=== PATIENT | female | born 1985 | race Caucasian/White ===

== ENCOUNTER → 2016-12-05 | Outpatient (CLI) | payer MEDICAID ==
[2016-12-05 13:03] LABS: Glucose 3 Hour, Gest 127 mg/dL
== END | disposition home or self-care (01) ==
LOC: LABWHC1 08:08
PROVIDERS: ATTEND Obstetrics & Gynecology
DX: O99.810 Abnormal glucose complicating pregnancy (principal); Z3A.00 Weeks of gestation of pregnancy not specified
CPT/HCPCS: 36415; 82951; 82952

== ENCOUNTER → 2017-03-07 | Outpatient (CLI) | payer MEDICAID | END | disposition home or self-care (01) | LOC: LABWHC1 08:51 | PROVIDERS: ATTEND Obstetrics & Gynecology | DX: Z36 Encounter for antenatal screening of mother (principal) | CPT/HCPCS: 36415; 82950 ==

== ENCOUNTER → 2017-03-18 | Outpatient (CLI) | payer MEDICAID ==
[2017-03-18 12:04] LABS: Glucose 3 Hour, Gest 127 mg/dL
== END | disposition home or self-care (01) ==
LOC: LABWHC1 07:41
PROVIDERS: ATTEND Obstetrics & Gynecology
DX: O99.810 Abnormal glucose complicating pregnancy (principal); Z3A.00 Weeks of gestation of pregnancy not specified
CPT/HCPCS: 36415; 82951; 82952

== ENCOUNTER 2017-05-25 00:38 | Inpatient (IN) | payer MEDICAID ==
[2017-05-25] MEDS ORDERED: OXYTOCIN 10 UNIT/ML 1 ML VIAL IM PRN (00:55)
[2017-05-25] MEDS ORDERED: LIDOCAINE 1% (PF) 10 MG/ML (30 ML SDV) SQ PRN (00:55)
[2017-05-25] MEDS ORDERED: METHYLERGONOVINE 0.2 MG/ML 1 ML AMP IM PRN (00:55)
[2017-05-25] MEDS ORDERED: CARBOPROST TROMETHAMINE 250 MCG/ML 1 ML AMP IM PRN (00:55)
[2017-05-25] MEDS ORDERED: TERBUTALINE 1 MG/ML VIAL SQ PRN (00:55)
[2017-05-25] MEDS: LACTATED RINGERS 1,000 ML IV SCH ×2 (01:00→20:34)
[2017-05-25 01:14] LABS: Anisocytosis Slight; Basophils % (A) 0 %; CH 30.7; CHCM 34.1; Eosinophils % (A) 0 %; HCT 37.7 % (34.0-46.0); HDW 2.66; HGB 12.5 gm/dL (11.4-16.0); Luc # (Auto) 0.32; Luc % (Auto) 3; Lymphocytes # (A) 1.6 k/uL (1.0-4.8); Lymphocytes % (A) 15 %; MCH 30.1 pg (25.0-35.0); MCHC 33.2 g/dL (31.0-37.0); MCV 90.5 fL (80.0-100.0); Monocytes # (A) 0.5 k/uL (0-1.0); Monocytes % (A) 4 %; Neutrophils # (A) 8.7 k/uL (1.3-7.7); Neutrophils % (A) 78 %; RBC 4.17 m/uL (3.80-5.40); RDW 16.3 % (11.5-15.5); WBC 11.2 k/uL (3.8-10.6); WBC (Perox) 11.77
--- NOTE | 2017-05-25 02:22 | P.HPOB ---
History of Present Illness H&P Date: 05/25/17 Chief Complaint: contractions This is a 32 yo that presents to OB with c/o CTX, and vaginal bleeding. she notes good FM, and denies LOF pre priscilla blood work showed a blood type of A+, Rubella immune RPR was NR, HBSaG neg, and HIV neg. on initial cervical exam she was complete with a buldging membranes. Past Medical History Past Medical History: No Reported History (GDM) History of Any Multi-Drug Resistant Organisms: None Reported Additional Past Surgical History / Comment(s): [place] teeth removal Past Anesthesia/Blood Transfusion Reactions: No Reported Reaction Past Psychological History: No Psychological Hx Reported Smoking Status: Never smoker Past Alcohol Use History: None Reported Past Drug Use History: None Reported Medications and Allergies Home Medications Medication Instructions Recorded Confirmed Type Vit 40/Iron/Folic/Dha 1 each PO DAILY 03/22/17 05/25/17 History [ Multivitamin-Dha Sfgl] Allergies Allergy/AdvReac Type Severity Reaction Status Date / Time No Known Allergies Allergy Verified 05/25/17 00:54 Exam Osteopathic Statement: *. No significant issues noted on an osteopathic structural exam other than those noted in the History and Physical/Consult. - Vital Signs Vital signs: Intake and Output 05/24/17 05/24/17 05/25/17 14:59 22:59 06:59 Other: Weight 92.986 kg Patient Weight 05/25/17 06:59 Weight 92.986 kg - OBG Physical Exam Cervix: compete with a bulging bag of water Results Result Diagrams: 05/25/17 01:02 Abnormal Lab Results - Last 24 Hours (Table) 05/25/17 Range/Units 01:02 WBC 11.2 H (3.8-10.6) k/uL RDW 16.3 H (11.5-15.5) % Neutrophils # 8.7 H (1.3-7.7) k/uL Assessment and Plan (1) Active labor at term Status: Acute Plan: admit to Labor and Delivery with anticipation of
--- NOTE | 2017-05-25 02:27 | P.PROBDLV ---
Vaginal Delivery Note - . Vaginal Delivery Note: Pre op dx; IUP @ 38 4/7 weeks, labor, GDM Post op dx; same Procedure , repair of left lateral vaginal sulcus tear, midline second degree laceration repair. Surgeon; Viktor Tavera DO Anesthesia: local with repair EBL; 300 Findings male in OA presentation with loose nuchal cord delivered through , at 1:38. male infant "avett", 7-0. placenta delivered spontaneously intact with 3VC. Apgars of 9, 9 at 1 and 5 mins respectively. Complications: none
[2017-05-25] MEDS ORDERED: ACETAMINOPHEN TAB 325 MG TAB PO PRN (02:28)
[2017-05-25] MEDS ORDERED: BENZOCAINE/MENTHOL SPRAY 1 GM/SPRAY AEROSOL TOPICAL PRN (02:28)
[2017-05-25] MEDS ORDERED: diphenhydrAMINE 50 MG/ML 1 ML VIAL IVP PRN ×2 (02:28)
[2017-05-25] MEDS ORDERED: HYDROCORTISONE 2.5% RECTAL CREAM 30 GM TUBE RECTAL PRN (02:28)
[2017-05-25] MEDS ORDERED: LANOLIN CREAM 5 GM TUBE TOPICAL PRN (02:28)
[2017-05-25] MEDS ORDERED: WITCH HAZEL 1 EACH MED..PAD TOPICAL PRN (02:28)
[2017-05-25] MEDS ORDERED: SIMETHICONE 80 MG CHEWABLE PO PRN (02:28)
[2017-05-25] MEDS ORDERED: diphenhydrAMINE 50 MG CAP PO PRN (02:28)
[2017-05-25] MEDS ORDERED: diphenhydrAMINE 25 MG CAP PO PRN (02:28)
[2017-05-25] MEDS ORDERED: ZOLPIDEM 5 MG TAB PO PRN (02:28)
[2017-05-25] MEDS: IBUPROFEN 600 MG TAB PO PRN ×2 (02:42→14:53)
[2017-05-25 04:04] VITALS: BMI 34.1
[2017-05-25] MEDS ORDERED: OXYTOCIN 20 UNITS/1000 ML NS 1,000 ML IV SCH (05:30)
[2017-05-25] MEDS: SENNOSIDES-DOCUSATE SODIUM 1 EACH TAB PO SCH ×2 (08:01→19:54)
[2017-05-25] MEDS: Acetaminophen-Codeine 300-30mg TAB PO PRN (19:54)
[2017-05-26] MEDS: LACTATED RINGERS 1,000 ML IV SCH (00:26)
[2017-05-26] MEDS: Acetaminophen-Codeine 300-30mg TAB PO PRN (06:14)
--- NOTE | 2017-05-26 09:01 | P.PNOBGVD ---
Subjective - Subjective Principal diagnosis: day #1 status post normal spontaneous vaginal delivery Interval history: Denise is a very pleasant 32-year-old 1 para 1 that presented to labor into delivery in active labor. She has been doing well since delivery she is in [place] and voiding without difficulty. She is tolerating regular diet without nausea or vomiting. Her pain is well controlled. Her lochia is moderate in nature. Patient reports: Reports appetite normal, Reports voiding normally, Reports pain well controlled, Reports ambulating normally : doing well Objective - Latest Vital Signs Latest vital signs: Vital Signs Temp Pulse Resp BP Pulse Ox 05/26/17 00:00 98.4 F 75 18 126/58 97 05/25/17 20:00 97.8 F 82 18 155/86 100 05/25/17 16:00 98.9 F 104 H 20 114/60 97 05/25/17 12:00 97.9 F 101 H 20 137/81 97 - Exam Extremities: Present: normal Abdomen: Present: normal appearance Uterus: Present: firm (Firm and below the umbilicus) Assessment and Plan (1) Active labor at term Narrative/Plan: Plan discharge today. Routine instructions are discussed. She will follow-up with Dr. jorgensen in the office as scheduled Current Visit: Yes Status: Acute Code(s): [id number] - SNOMED Code(s): 06789997
--- NOTE | 2017-05-26 09:39 | P.DS ---
Providers Date of admission: 05/25/17 01:05 Expected date of discharge: 05/26/17 Attending physician: Patricia Robles Primary care physician: Stated None - Discharge Diagnosis(es) (1) Active labor at term Denise is a very pleasant 32-year-old 1 para 1 that presented to the burn delivery with complaints of contractions on 05/25/2017. On admission she was complete lead dilated with subsequent spontaneous rupture of membranes once in her labor room. She delivered soon afterwards spontaneous vaginal delivery and did sustain a left lateral sulcus vaginal laceration. This was repaired without difficulty. Current Visit: Yes Status: Acute Hospital Course: Patient's course has been unremarkable. She has done well since delivery of her son at 138 on 05/25/2017. His weight was 7 pounds 0.7 ounces with Apgars of 9 and 9 at one and 5 minutes respectively. She has ambulated and voided without difficulty. She is tolerating regular diet without nausea and vomiting. Her lochia has been minimal to moderate nature. She is breast- feeding. Plan - Discharge Summary New Discharge Prescriptions: No Action Vit 40/Iron/Folic/Dha [ Multivitamin-Dha Sfgl] 1 each PO DAILY Discharge Medication List Vit 40/Iron/Folic/Dha [ Multivitamin-Dha Sfgl] 1 each PO DAILY 03/22/17 [History] Follow up Appointment(s)/Referral(s): Patricia Robles MD [STAFF PHYSICIAN] - 6 Weeks Discharge Disposition: HOME SELF-CARE
[2017-05-26 09:49] VITALS: BP 143/91; PULSE 94; RESP 16; TEMP 97.8
[2017-05-26] MEDS: SENNOSIDES-DOCUSATE SODIUM 1 EACH TAB PO SCH (11:02)
[2017-05-26] MEDS: IBUPROFEN 600 MG TAB PO PRN (11:03)
== END 2017-05-26 14:25 | disposition home or self-care (01) | DRG 775 ==
LOC: FBPOP 00:38 → 4FBP 01:05
PROVIDERS: ADMIT Obstetrics & Gynecology; ATTEND Obstetrics & Gynecology
PROC: 10E0XZZ Delivery of Products of Conception, External Approach (ICD-10-PCS; principal; 2017-05-25)
PROC: 0KQM0ZZ Repair Perineum Muscle, Open Approach (ICD-10-PCS; 2017-05-25)
DX: O24.429 Gestational diabetes mellitus in childbirth, unspecified control (principal); O69.81X0 Labor and delivery complicated by cord around neck, without compression, not applicable or unspecified; O70.1 Second degree perineal laceration during delivery; Z37.0 Single live birth; Z3A.38 38 weeks gestation of pregnancy; Z79.899 Other long term (current) drug therapy
CPT/HCPCS: 59025; 85025; 88307; 99213